=== PATIENT | female | born 2000 | race Caucasian/White ===

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

== ENCOUNTER 2024-01-26 07:03 | Inpatient (IN) ==
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
--- OUTSIDE RECORDS SUMMARY | 2024-01-26 07:17 | External Medical Summary ---
Author Name Unknown Address Unknown Organization [id number]:[facility] [place] [address] [facility] [place] [address] Laboratory Report Ordering Provider Test Date Status BRANDYN BRUCE 01/23/2024 11:00:00 Final Observation Date Value Abnormality Reference (Units ) Status BUN 01/23/2024 11:00:00 9 6-20 (mg/dL) Final Creatinine 01/23/2024 11:00:00 0.7 0.5-1.0 (mg/dL) Final Glomerular filtration rate/1.73 sq M.predicted [Volume Rate/Area] in Serum, Plasma or Blood by Creatinine-based formula (CKD-EPI) 01/23/2024 11:00:00 >90 >=60 (mL/min) Final eGFR is calculated based on the CKD-EPI 2020 equation Sodium 01/23/2024 11:00:00 136 135-146 (m mol/L) Final Potassium 01/23/2024 11:00:00 4.3 3.5-5.1 (m mol/L) Final Cl 01/23/2024 11:00:00 105 98-107 (mm ol/L) Final CO2 01/23/2024 11:00:00 21 Below low normal 22- 32 (mmol/L) Final Anion gap 01/23/2024 11:00:00 10 7-15 (mmol /L) Final Glucose 01/23/2024 11:00:00 92 70-120 (mg /dL) Final Albumin 01/23/2024 11:00:00 3.7 Below low normal 3.8 -5.0 (g/dL) Final AST (Aspartate aminotransferase) 01/23/2024 11:00:00 38 Above high normal 10-35 (U/L) Final Alk Phos 01/23/2024 11:00:00 224 Above high normal 35 -130 (U/L) Final Bilirubin, Total 01/23/2024 11:00:00 0.2 <=1 .2 (mg/dL) Final Calcium 01/23/2024 11:00:00 9.2 8.4-10.2 ( mg/dL) Final Protein 01/23/2024 11:00:00 6.1 6.0-8.3 (g /dL) Final ALT (Alanine aminotransferase) 01/23/2024 11:00:00 7 Below low normal 10-35 (U/L) Final Performing Location [facility] [place] [facility] [address] [facility] [id number]
--- OUTSIDE RECORDS SUMMARY | 2024-01-26 07:17 | External Medical Summary | Summary of Care ---
Author Name Unknown Organization [facility] Address [address] [place] [address] Phone [phone] Care Team Providers Care Civil Attorney Name Role Phone John Garsia MD Primary Care Provider [phone] Reason for Visit * Reason Comments Outpatient Testing Encounter Details Date Type Department Care Team ([facility] st Contact Info) Description 01/23/2024 11:20 AM EDT Laboratory Laboratory, [facility] [address] [place] [id number] [facility] [address] [place] [address] Arrived Allergies No known active allergiesdocumented as of [...] breast feeding 1 Each 0 10/20/2023 Active documented as of this encounter (statuses as of 01/23/2024) Active Problems Problem Noted Date Diagnosed Date Health counseling 06/30/2023 Overview: Problem Action Taken Date entered Entered by Date resolved Lack of family support Discussed resources 06/30/2023 Dinora Diego RN 06/30/2023 Problem Action Taken Date entered Entered by Date resolved Need for food assistance referred to [facility] and local food soriano 06/30/2023 Dinora Diego RN 06/30/2023 Problem Action [...] has number to call after hours. Provider eval 01/23/2024 Shannon Ivy RN 01/23/2024 Encounter for [...] Date Smoking Tobacco: Never Smokeless Tobacco: Never Comments:Parents smoke but n ot around this Alcohol Use Standard Drinks/Week Comments Not Currently [...] money to get more. Never true 08/24/2023 [place] Depression Scale Answer Date Recorded [place] Depression Scale Total 0 01/02/2024 The thought [...] on file documented as of this encounter Plan of Treatment Upcoming Encounters Date Type Department Care Team (Late st Contact Info) Description 01/23/2024 3:40 PM EDT Office Visit [facility] [address] [place] [facility] [place] [id number] Henry Cisneros MD [address] [place] [address] Health Maintenance Due Date Last Done Comments [...] Not on filedocumented as of this encounter Care Teams Civil Attorney Relationship Specialty Start Date End Date John Garsia MD [address] [place] [address] PCP - General Family Medicine 03/04/19 documented as of this encounter
--- OUTSIDE RECORDS SUMMARY | 2024-01-26 07:17 | External Medical Summary | Summary of Care ---
Author Name Unknown Organization [facility] Address [address] [place] [address] Phone [phone] Care Team Providers Care Corrugator Operator Helper Name Role Phone John Garsia MD Primary Care Provider [phone] Reason for Visit * Reason Onset Date Comments Test Results 01/23/2024 Unexpected or In determinate Result Encounter Details Date Type Department Care Team (Late st Contact Info) Description 01/23/[address] [facility] [address] [place] [address] Jyotsna Richter PA-C [address] [place] [address] Test Results (Unexpected or Indeterminate ... Allergies No known active allergiesdocumented as of [...] resolved Need for food assistance referred to [facility] and local food [employer] 06/30/2023 Dinora Diego, ERNESTINA 06/30/2023 Problem Action Taken Date entered Entered [...] 01/23/2024) Immunizations Name Administration Dates Next Due DTaP Dipth/Tet/Acell Pertussis (Infanrix), Peds 06/15/2004,10/09/2001,02/12/2000,11/07,1999 HIB Hep B - HIB Hepatitis B (Comvax) 11/29/2002, 02/12/2000 HIB PRP-T, 4 dose (ActHib) 1999,1999 HPV Vaccine, 4-Valent 07/26/2013,12/19/2011,01/201212/08/2011 Hep A - Hepatitis A (ped/ado le, 1-18 Yrs) 01/13/2017 Hepatitis B, 0-19 yrs 06/27/2000 IPV - Polio Virus Vaccine (Inact) 2003,10/09/2001,1999,09/06 MMR - Measles/Mumps/Rubella Vaccine 06/15/2004,0 10/09/2001 Meningococcal Conjugate Vacc ine (Menactra/Menveo) 01/11/2016,10/09/2011 Seasonal Influenza, PF, 6 M & above, IM , (FluLaval or Fluzone) 07/01/2023,07/20/2019,07/13/2018 Seasonal Influenza, Quadriva lent, No Preserve, IM 07/14/2020 Seasonal Influenza, Split, I IV3, With Preserve, Inj 07/12/2013,06/26/2009(Deferred: Patient Refused) TDAP (age 10 and older)(Boostrix) 11/03/2023 TDAP (age 11 and older)(Adacel) 01/13/2017,10/0910/09/2021 Varicella Vaccine (Chicken Pox) 06/15/2004,10/09 documented as of this encounter Social History Tobacco Use Types Packs/Day Years Used Date Smoking Tobacco: Never Smokeless Tobacco: Never Comments:Parents smoke but n ot around this infant Alcohol Use Standard Drinks/Week [...] money to get more. Never true 08/24/2023 [place] Depression Scale Answer Date Recorded [place] Depression Scale Total 0 01/02/2024 The thought [...] on file documented as of this encounter Miscellaneous Notes * Telephone Encounter - Jyotsna Richter PA-C - 01/23/2024 11:22 AM EDT Delayed documentation d/t patient care. Review case and management of this patient with business unit controller provider - Dr. Evans. Discussed visit today. C/o contractions. Non-reactive NST. BPP completed 05/13. Final report not back at time of call with Dr. Evans. Preliminary findings concerning for TRENT 5.0. Reviewed other findings of elevated BP without diagnosis of GHTN. Negative proteins by site dip. Asymptotic. PEC labs drawn. Dr. Evans advised no beds available for delivery today. Recommend she be set up with IOL on Friday.Patient was scheduled for IOL on 01/26/2024 at [facility]. Patient was called and given instructions for induction. Final report back received back after this plan of care establish. TRENT 7.6 on final report not 5.0.Given non-reactive NST today, borderline low TRENT, elevated BP and due date tomorrow will proceed with postdate IOL as scheduled on 01/25. * Telephone Encounter - Jyotsna Richter PA-C - 01/23/2024 11:21 AM EDT Aware. * Telephone Encounter - Theresa Donahue TECH - 01/23/2024 10:10 AM EDT Hello- The radiologist discovered an unexpected or indeterminate finding on Natacha Payton ([id number]) and asks that you review the following report. Study Type: US BPP W/O NON-STRESS TEST Date of Study: 01/23/2024 IMPRESSION: 1. BPP score: 8 of 8. 2. Lower limits of normal TRENT. 3. Vertex presentation. Please respond to this encounter to acknowledge receipt of this message and take responsibility to ensure this report is reviewed. Thank you, PONCHO Cotton Client Service Rep [facility] [place] documented in this encounter Plan of Treatment Upcoming Encounters Date Type Department Care Team (Late st Contact Info) Description 01/23/2024 3:40 PM EDT Office Visit [facility] [address] [facility] [place] [phone] Henry Cisneros MD [address] [facility] [place] [phone] Health Maintenance Due Date Last Done Comments [...] filedocumented as of this encounter Care Teams Corrugator Operator Helper Relationship Specialty Start Date End Date John Garsia MD [address] [place] [address] PCP - General Family Medicine 03/04/19 documented as of this encounter
--- OUTSIDE RECORDS SUMMARY | 2024-01-26 07:17 | External Medical Summary | Summary of Care ---
Author Name Unknown Organization [facility] Address [address] [facility] [place] [address] Phone [phone] Care Team Providers Care Surgeon Chief Name Role Phone John Garsia MD Primary Care Provider [phone] Encounter Details Date Type Department Care Team ([facility] st Contact Info) Description 01/20/2024 Telephone Gynecology/Obstetrics, [address] [place] [address] Jyotsna Richter PA-C [address] [place] [address] Allergies No known active allergiesdocumented as of this encounter (statuses as of 01/20/2024) Medications Medication Sig Dispensed Refills Start Date [...] as of this encounter (statuses as of 01/20/2024) Active Problems Problem Noted Date Diagnosed Date Health counseling 06/30/2023 Overview: Problem Action Taken Date entered Entered by Date resolved Lack of family support Discussed resources 06/30/2023 Dinora Diego RN 06/30/2023 Problem Action Taken Date entered Entered by Date resolved Need for food assistance referred to [facility] and local food [employer] 06/30/2023 Dinora Diego [...] or questions 01/16/2024 Shannon Ivy RN 01/16/2024 Encounter for supervision of normal first in first trimester 06/30/2023 Migraine without aura and wi thout status migrainosus, not intractable 11/12/2021 Headache, unspecified headache type 09/04/2018 Dermatitis 06/25/2017 Estimated Date of Delivery Comme nts Yes 01/24/2024 Based on Ultraso und documented as of this encounter (statuses as of 01/20/2024) Resolved Problems Problem Noted Date Diagnosed Date [...] as of this encounter (statuses as of 01/20/2024) Immunizations Name Administration Dates Next Due HPV [...] money to get more. Never true 08/24/2023 [place] Depression Scale Answer Date Recorded [place] Depression Scale Total 0 01/02/2024 The thought [...] encounter Miscellaneous Notes * Telephone Encounter - Xochitl Valadez LPN - 01/20/2024 1:15 PM EDT Addressed through myg * Telephone Encounter - Stephie Hart RN - 01/20/2024 11:34 AM EDT T/C from pt stating that she lost her mucus plug just now. Denies UCs or cramping. Admits to +FM. Denies vaginal bleeding or LOF. Reassurance given. Advised pt to cont to monitor. To call office with any decreased FM, vaginal bleeding, LOF or UCs. Please review with aoc operations intelligence chief provider and notify pt. Maria C pt. documented in this encounter Plan of Treatment Upcoming Encounters Date Type Department Care Team (Late st Contact Info) Description 01/23/2024 7:30 AM EDT Office Visit Gynecology/Obstetrics [facility] [address] [place] [address] Jyotsna Richter PA-C [address] [place] [address] Nurse [facility] Return [facility] [address] [place] [address] Health Maintenance Due Date Last Done Comments [...] filedocumented as of this encounter Care Teams Surgeon Chief Relationship Specialty Start Date End Date John Garsia MD [address] [place] [address] PCP - General Family Medicine 03/04/19 documented as of this encounter
--- OUTSIDE RECORDS SUMMARY | 2024-01-26 07:17 | External Medical Summary | Summary of Care ---
Author Name Unknown Organization [facility] Address [address] [place] [address] Phone [phone] Care Team Providers Care Supervisor Wood Crew Name Role Phone John Garsia MD Primary Care Provider [phone] Reason for Visit * Reason Comments Return Visit Encounter Details Date Type Department Care Team (Late st Contact Info) Description 01/23/2024 7:30 AM EDT Office Visit Gynecology/Obstetri cs [facility] [address] [facility] [place] [address] Jyotsna Richter PA-C [address] [place] [address] Nurse [facility] Return Sascha [address] [place] [address] 39 weeks gestation of * Allergies No known active allergiesdocumented as of this encounter (statuses as of 01/23/2024) Medications Medication Sig Dispensed Refills Start Date End Date Status Ondansetron 8 MG Oral Tablet Disintegrating (Zofran)Indications:N ausea Place on tongue 1 Tablet every 8 hours as needed for Nausea. dissolve on tongue. 12 Tablet 1 01/10/2022 Active Additional Information Patient not taking.Reported on 07/31/2023 Flintsbarbara w/Iron 18 MG Oral Tablet Chewable Take [...] resolved Need for food assistance referred to [facility] and local food soriano 06/30/2023 Dinora Diego [...] money to get more. Never true 08/24/2023 [place] Depression Scale Answer Date Recorded [place] Depression Scale Total 0 01/02/2024 The thought [...] Sign Reading Time Taken Comments Blood Pressure 142/84 01/23/2024 7:33 AM EDT Pulse - - Temperature - - Respiratory Rate - - Oxygen Saturation - - Inhaled Oxygen Concentration - - Weight 73 kg (161 lb) 01/23/2024 7:33 AM EDT Height 152.4 cm (5') 01/23/2024 7:33 AM EDT Body Mass Index 31.44 01/23/2024 7:33 AM EDT documented in this encounter Progress Notes * Jyotsna Richter PA-C - 01/23/2024 7:48 AM EDT 39w6d C/o severe menstrual cramping. Every 3 minutes apart. Started yesterday. Feels it this morning. Pt states at worse 10/10 pain. Desires cervical check. Cervix high/firm/posterior/fingertip. SSE: cervix visually closed BP also elevated at 142/84. Recheck 128/90. Denies h/a, RUQ pain, cp, SOB, or vision changes. Pt reports swollen left eye-lid. Unsure reason. Denies VB, LOF. Baby is active. UA negative. ASSESSMENT assessment with Non-stress Test completed on 01/23/2024 at 39.6 weeks gestation for indicationof contractions heart baseline: 125 bpm, strip jammed between 036-035 pap discarded Variability: Moderate Decelerations: absent Accelerations: absent Contractions: Present irregular q10-15 minutes NST start time: 07:48 AM NST stop time: 8:30 AM NST strip reviewed, interpreted, and approved by OB provider, Jyotsna Richter PA-C. NST strip stored in clinic storage file A/P: BPP to be completed d/t non-reactive NST -- BPP 05/13, low TRENT. See additional encounters for IOL. BP elevated, no proteins by site dip, asymptomatic. PEC labs ordered. Labor and pre-eclampsia precautions reviewed in detail with patient Pt to be induced Friday01/26/2024. documented in this encounter Nursing Notes * Shannon Ivy RN - 01/23/2024 8:06 AM EDT Patient seen by [facility] Safety Scientist. * Gloria Patino LPN - 01/23/2024 7:33 AM EDT 39w6d documented in this encounter Plan of Treatment Upcoming Encounters Date Type Department Care Team (Late st Contact Info) Description 01/23/2024 3:40 PM EDT Office Visit [facility] [address] [place] [facility] [place] [address] Henry Cisneros MD [address] [place] [address] Pending Results Name Type Priority Associated Diagnoses Date /Time PROTEIN/ CREATININE RATIO, URINE Lab Routine 39 weeks gestation of 01/23/2024 9:33 AM EDT COMPREHENSIVE METABOLIC PANEL Lab Routine 39 weeks gestation of 01/23/2024 11:00 AM EDT Health Maintenance Due Date Last Done Comments [...] Not on filedocumented as of this encounter Procedures Procedure Name Priority Date/Time Associated Diagnosis Comments CBC Routine 01/23/2024 11:00 AM EDT 39 weeks gestation of URINALYSIS, POINT OF CARE (ENTER/EDIT) Routine 01/23/2024 39 weeks gestation of documented in this encounter Results * (ABNORMAL) CBC (01/23/2024 11:00 AM EDT) WBC 8.55 4.00 - 10.80 K/uL 01/23/2024 11:59 AM EDT [facility] [place] [facility]10 RBC 4.06 3.85 - 5.15 M/uL 01/23/2024 11:59 AM EDT [facility] [place] 57-10 HGB 11.5(L) 12.0 - 15.3 g/dL 01/23/2024 11:59 AM EDT [facility] [place] 57-10 HCT 35.5(L) 36.0 - 45.2 % 01/23/2024 11:59 AM EDT [facility] [place] [facility]10 MCV 87.4 81.5 - 97.5 fL 01/23/2024 11:59 AM EDT [facility] [place] [facility]10 MCH 28.3 27.0 - 34.0 pg 01/23/2024 11:59 AM EDT [facility] [place] [facility]10 MCHC 32.4 32.0 - 36.0 g/dL 01/23/2024 11:59 AM EDT [facility] [place] [facility]10 RDW 14.8 11.5 - 15.5 % 01/23/2024 11:59 AM EDT [facility] [place] [facility]10 PLT 263 140 - 400 K/uL 01/23/2024 11:59 AM EDT [facility] [place] [facility]10 MPV 11.3 6.6 - 11.1 fL 01/23/2024 11:59 AM EDT [facility] [place] [facility]10 Blood Venous blood specimen / Unknown Venipuncture / Unknown 01/23/2024 11:00 AM EDT 01/23/2024 11:00 AM EDT Jyotsna Richter PA-C LAB BLOOD ORDERABLES [facility] [address] [facility] [place] [address] * US BPP W/O NON-STRESS TEST (01/23/2024 9:41 AM EDT) Anatomical Region Laterality Modality Abdomen, Body Ultrasound 01/23/2024 9:53 AM EDT Impressions 01/23/2024 9:51 AM EDT IMPRESSION: 1. BPP score: 8 of 8. 2. Lower limits of normal TRENT. 3. Vertex presentation. Narrative 01/23/2024 9:51 AM EDT EXAM: US BPP W/O NON-STRESS TEST - 01/23/2024 9:41 am HISTORY: non-reactive nst TECHNIQUE: Sonographic examination performed. COMPARISON: First ultrasound 06/30/2023 FINDINGS: GENERAL On 1st ultrasound 06/30/2023 the due date 01/24/2024 so current gestational age 39 weeks 6 days. : [place] Presentation: Vertex heart rate: 151 bpm Amniotic Fluid: Lower limits of normal TRENT: 7.6 cm which is slightly above the 5th percentile for this stage of . BIOPHYSICAL PROFILE breathing movement: 2 Gross body movement: 2 tone: 2 Qualitative AFV: 2 Total BPP score: 8 of 8. Procedure Note Curtis Matias MD - 01/23/2024 EXAM: US BPP W/O NON-STRESS TEST - 01/23/2024 9:41 am HISTORY: non-reactive nst TECHNIQUE: Sonographic examination performed. COMPARISON: First ultrasound 06/30/2023 FINDINGS: GENERAL On 1st ultrasound 06/30/2023 the due date 01/24/2024 so currentgestational age 39 weeks 6 days. : [place] Presentation: Vertex heart rate: 151 bpm Amniotic Fluid: Lower limits of normal TRENT: 7.6 cm which is slightly above the 5th percentile for this stage ofpregnancy. BIOPHYSICAL PROFILE breathing movement: 2 Gross body movement: 2 tone: 2 Qualitative AFV: 2 Total BPP score: 8 of 8. IMPRESSION IMPRESSION: 1. BPP score: 8 of 8. 2. Lower limits of normal TRENT. 3. Vertex presentation. Jyotsna Richter PA-C RAD ULTRASOUND * URINALYSIS, POINT OF CARE (ENTER/EDIT) (01/23/2024) Color, Urine Yellow Yellow or Light Yellow Clarity, Urine Clear Clear Glucose, Urine Negative Negative mg/dL Bilirubin, Urine Negative Negative Ketone, Urine Negative Negative mg/dL Specific [place], Urine 1.015 1.003 - 1.030 Blood, Urine Negative Negative pH, Urine 7.0 5.0 - 7.5 units Protein, Urine Negative Negative mg/dL Urobilinogen, Urine 0.2 0.2 - 1.0 mg/dL Nitrite, Urine Negative Negative Esterase, Urine Negative Negative Urine 01/23/2024 Jyotsna Richter PA-C LAB POINT OF CARE TE ST ENTER/EDIT ORDERABLES documented in this encounter Visit Diagnoses Diagnosis 39 weeks gestation of - Primary state, incidental 39 weeks gestation of state, incidental documented in this encounter Care Teams Supervisor Wood Crew Relationship Specialty Start Date End Date John Garsia MD [address] [facility] [place] [address] PCP - General Family Medicine 03/04/19 documented as of this encounter
--- OUTSIDE RECORDS SUMMARY | 2024-01-26 07:17 | External Medical Summary ---
Author Name Unknown Address Unknown Organization [id number]:[facility] [place] - [address] [place] [address] Laboratory Report Ordering Provider Test Date Status BRANDYN BRUCE 01/23/2024 09:33:19 Final Normal: <150 mg/ g creatinine
High: 150-500 mg/g creatinine
Very High: >500 mg/g creatinine
Nephrotic: >3000 mg/g creatinine Observation Date Value Abnormality Reference (Units ) Status Protein/Creatinine [Ratio] in Urine 01/23/2024 09:33:19 192 Above high normal <150 (mg/g ) Final Protein, Urine 01/23/2024 09:33:19 10 (mg/dL) Final Creatinine, Urine 01/23/2024 09:33:19 52 (mg/dL) Final Performing Location [facility]ORY [facility] [place] - [address] [place] [address]
--- OUTSIDE RECORDS SUMMARY | 2024-01-26 07:17 | External Medical Summary ---
Author Name Unknown Address Unknown Organization [id number]:[facility] - [address] [place] [address] Laboratory Report Ordering Provider Test Date Status BRANDYN BRUCE 01/23/2024 11:00:00 Final Observation Date Value Abnormality Reference (Units ) Status WBC, Total 01/23/2024 11:00:00 8.55 4.00-10.8 0 (K/uL) Final RBC 01/23/2024 11:00:00 4.06 3.85-5.15 (M/uL) Final Hemoglobin 01/23/2024 11:00:00 11.5 Below low normal 12 .0-15.3 (g/dL) Final HCT 01/23/2024 11:00:00 35.5 Below low normal 36. 0-45.2 (%) Final MCV 01/23/2024 11:00:00 87.4 81.5-97.5 (fL) Final MCH 01/23/2024 11:00:00 28.3 27.0-34.0 (pg) Final MCHC 01/23/2024 11:00:00 32.4 32.0-36.0 (g/dL) Final RDW 01/23/2024 11:00:00 14.8 11.5-15.5 (%) Final Platelets 01/23/2024 11:00:00 263 140-400 (K /uL) Final MPV 01/23/2024 11:00:00 11.3 6.6-11.1 ( fL) Final Performing Location [facility]ORY [facility] 57-1 0 - [address] [place] [address]
--- OUTSIDE RECORDS SUMMARY | 2024-01-26 07:17 | External Medical Summary | Summary of Care ---
Author Name Unknown Organization [facility] Address [address] [place] [address] Phone [phone] Care Team Providers Care Cake Inspector Name Role Phone John Garsia MD Primary Care Provider [phone] Reason for Visit * Reason Comments Return Visit Encounter Details Date Type Department Care Team (Late st Contact Info) Description 01/16/2024 7:30 AM EDT Office Visit Gynecology/Obstetri cs [place] [address] [facility] [place] [address] Jyotsna Richter PA-C [address] [facility] [place] [address] Nurse [facility] Return Sascha [address] [place] [address] 38 weeks gestation of * Allergies No known active allergiesdocumented as of this encounter (statuses as of 01/16/2024) Medications Medication Sig Dispensed Refills Start Date [...] as of this encounter (statuses as of 01/16/2024) Active Problems Problem Noted Date Diagnosed Date Health counseling 06/30/2023 Overview: Problem Action Taken Date entered Entered by Date resolved Lack of family support Discussed resources 06/30/2023 Dinora Diego RN 06/30/2023 Problem Action Taken Date entered Entered by Date resolved Need for food assistance referred to [facility] and local food soriano 06/30/2023 Dinora Diego [...] as of this encounter (statuses as of 01/16/2024) Resolved Problems Problem Noted Date Diagnosed Date [...] as of this encounter (statuses as of 01/16/2024) Immunizations Name Administration Dates Next Due HPV [...] money to get more. Never true 08/24/2023 [place] Depression Scale Answer Date Recorded [place] Depression Scale Total 0 01/02/2024 The thought [...] Sign Reading Time Taken Comments Blood Pressure 124/76 01/16/2024 7:19 AM EDT Pulse - - Temperature - - Respiratory Rate - - Oxygen Saturation - - Inhaled Oxygen Concentration - - Weight 72.6 kg (160 lb) 01/16/2024 7:19 AM EDT Height 152.4 cm (5') 01/16/2024 7:19 AM EDT Body Mass Index 31.25 01/16/2024 7:19 AM EDT documented in this encounter Progress Notes * Jyotsna Richter PA-C - 01/16/2024 7:29 AM EDT 38w6d Increased cramping, had one yesterday that she states made her cry. Also had another in the waitingroom today. No consistent intervals. Denies VB, LOF. Pos fm. Request cervical check. Director Of Premium Seat Sales Documentation Provider requested leg man. Name of leg man: NATHAN Leung Uncertain position -- u/s ordered in follow up -- confirmed vertex RTC in 1 week Jyotsna Richter PA-C * Xochitl Valadez LPN - 01/16/2024 7:19 AM EDT 38w6d Having a lot of lower pelvic pressure Would like cervix checked documented in this encounter Nursing Notes * Shannon Ivy, RN - 01/16/2024 7:36 AM EDT Pt living with a friend has been. Feels her living situation is stable. Has a bassinet. Has a car seat. Plans to nurse baby. She notes her sister to be supportive. Pt denies any concerns. Number for nurse family partnership nurse given. Pt aware of their services and will think about reaching out to them. documented in this encounter Plan of Treatment Upcoming Encounters Date Type Department Care Team (Late st Contact Info) Description 01/23/2024 7:30 AM EDT Office Visit Gynecology/Obstetrics Maria C Morse [address] [place] [address] Jyotsna Richter PA-C [address] [place] [address] Nurse [facility] Return Sascha [address] [place] [address] Pending Results Name Type Priority Associated Diagnoses Date /Time US PREG LIMITED 1 OR MORE FETUSES Medical Imaging Routine 38 weeks gestation of 01/16/2024 7:50 AM EDT Scheduled Orders Name Type Priority Associated Diagnoses Orde r Schedule US PREG LIMITED 1 OR MORE FETUSES Medical Imaging Routine 38 weeks gestation of Expected: 01/16/2024, Expires: 02/14/2025 Health Maintenance Due Date Last Done Comments [...] as of this encounter Visit Diagnoses Diagnosis 38 weeks gestation of - Primary state, incidental documented in this encounter Care Teams Cake Inspector Relationship Specialty Start Date End Date John Garsia MD [address] [place] [address] PCP - General Family Medicine 03/04/19 documented as of this encounter
--- OUTSIDE RECORDS SUMMARY | 2024-01-26 07:17 | External Medical Summary | Summary of Care ---
Author Name Unknown Organization [facility] Address [address] [place] [address] Phone [phone] Care Team Providers Care Cereal Supervisor Name Role Phone John Garsia MD Primary Care Provider [phone] Reason for Visit * Reason Onset Date Comments Test Results 01/23/2024 Unexpected or In determinate Result Encounter Details Date Type Department Care Team (Late st Contact Info) Description 01/23/2024 Telephone Radiology [facility] [address] [place] [address] Jyotsna Richter PA-C [address] [facility] [place] [address] Test Results (Unexpected or Indeterminate ... Allergies [...] Need for food assistance referred to [facility] and local food [place] 06/30/2023 Dinora Diego, ERNESTINA 06/30/2023 Problem Action [...] money to get more. Never true 08/24/2023 [place] Depression Scale Answer Date Recorded [place] Depression Scale Total 0 01/02/2024 The thought [...] unexpected or indeterminate finding on Natacha Payton ([id number]) and asks that you review the following report. Study Type: US BPP W/O NON-STRESS TEST Date of Study: 01/23/2024 IMPRESSION: 1. BPP score: 8 of 8. 2. Lower limits of normal TRENT. 3. Vertex presentation. Please respond to this encounter to acknowledge receipt of this message and take responsibility to ensure this report is reviewed. Thank you, PONCHO Cotton Client Service Rep [facility] Medicine [place] documented in this encounter Plan of Treatment Upcoming Encounters Date Type Department Care Team (Late st Contact Info) Description 01/23/2024 3:40 PM EDT Office Visit [facility] [address] [place] [address] Henry Cisneros MD [address] [place] [address] Health Maintenance Due Date Last Done Comments [...] filedocumented as of this encounter Care Teams Cereal Supervisor Relationship Specialty Start Date End Date John Garsia MD [address] [place] [address] PCP - General Family Medicine 03/04/19 documented as of this encounter
--- OUTSIDE RECORDS SUMMARY | 2024-01-26 07:17 | External Medical Summary | Summary of Care ---
Author Name Unknown Organization [facility] Address [address] [place] [address] Phone [phone] Care Team Providers Care General Lot Attendant Name Role Phone John Garsia MD Primary Care Provider [phone] Reason for Visit * Reason Onset Date Comments Test Results 01/23/2024 Unexpected or In determinate Result Encounter Details Date Type Department Care Team (Late st Contact Info) Description 01/23/2024 Telephone Radiology [facility] [address] [place] [address] Jyotsna Richter PA-C [address] [place] [address] Test Results (Unexpected or Indeterminate ... Allergies [...] resolved Need for food assistance referred to [facility] and local food [employer] 06/30/2023 Dinora Diego, ERNESTINA 06/30/2023 Problem Action [...] money to get more. Never true 08/24/2023 [place] Depression Scale Answer Date Recorded [place] Depression Scale Total 0 01/02/2024 The thought [...] encounter Miscellaneous Notes * Telephone Encounter - Theresa Donahue TECH - 01/23/2024 10:10 AM EDT Hello- The radiologist discovered an unexpected or indeterminate finding on Natacha Payton ([id number]) and asks that you review the following [...] PONCHO Cotton Client Service Rep Diagnostic Medicine [place] documented in this encounter Plan of Treatment Upcoming Encounters Date Type Department Care Team (Late st Contact Info) Description 01/23/2024 3:40 PM EDT Office Visit [facility] [address] [place] [id number] Henry Cisneros MD [address] [place] [id number] Health Maintenance Due Date Last Done Comments [...] filedocumented as of this encounter Care Teams General Lot Attendant Relationship Specialty Start Date End Date John Garsia MD [address] [place] [address] PCP - General Family Medicine 03/04/19 documented as of this encounter
--- OUTSIDE RECORDS SUMMARY | 2024-01-26 07:17 | External Medical Summary | Summary of Care ---
Author Name Unknown Organization [facility] Address [address] [place] [address] Phone [phone] Care Team Providers Care Diesel Engine Engineer Name Role Phone John Garsia MD Primary Care Provider [phone] Reason for Visit * Reason Onset Date Comments Test Results 01/23/2024 Unexpected or In determinate Result Encounter Details Date Type Department Care Team (Late st Contact Info) Description 01/23/2024 Telephone Radiology [facility] [address] [place] [address] Jyotsna Richter PA-C [address] [facility] [place] [address] Test Results (Unexpected or Indeterminate ... Allergies [...] resolved Need for food assistance referred to [facility] and local food [address] 06/30/2023 Dinora Diego, ERNESTINA 06/30/2023 Problem Action [...] money to get more. Never true 08/24/2023 [place] Depression Scale Answer Date Recorded [place] Depression Scale Total 0 01/02/2024 The thought [...] case and management of this patient with automation controls engineer provider - Dr. Evans. Discussed visit today. C/o contractions. Non-reactive NST. BPP completed 05/13. TRENT 7.6, 5%. New findings now of oligohydramnios. Patient was not concerned with LOF or ROM at today's visit. Elevated BP without diagnosis of GHTN. Negative proteins by site dip. Asymptotic. PEC labs drawn. Dr. Evans advised no beds available for delivery today. Recommend she be set up with IOL on Friday.Patient was scheduled for IOL on 01/26/2024 at [facility]. Patient was called and given instructions for induction. * Telephone Encounter - Jyotsna Richter PA-C - 01/23/2024 11:21 AM EDT Aware. * Telephone Encounter - Theresa Donahue TECH - 01/23/2024 10:10 AM EDT Hello- The radiologist discovered an unexpected or indeterminate finding on Natacha Payton ([id number]) and asks that you review the following [...] PONCHO Cotton Client Service Rep Diagnostic Medicine [facility] documented in this encounter Plan of Treatment Upcoming Encounters Date Type Department Care Team (Late st Contact Info) Description 01/23/2024 3:40 PM EDT Office Visit [facility] [address] [place] [facility] [place] [address] Henry Cisneros MD [address] [place] [facility] [place] [address] Health Maintenance Due Date Last Done Comments Depression Screening 07/20/2020 07/20/2019 COVID-19 Vaccine (2022-24 season) 2023 Gonorrhea / Chlamydia Screen 06/30/2024, [...] filedocumented as of this encounter Care Teams Diesel Engine Engineer Relationship Specialty Start Date End Date John Garsia MD [address] [place] [address] PCP - General Family Medicine 03/04/19 documented as of this encounter
--- OUTSIDE RECORDS SUMMARY | 2024-01-26 07:18 | External Medical Summary | Summary of Care ---
Author Name Unknown Organization [facility] Address [address] [facility] [address] Phone [phone] Care Team Providers Care Waist Fitter Name Role Phone John Garsia MD Primary Care Provider [phone] Encounter Details Date Type Department Care Team ([facility] st Contact Info) Description 01/02/2024 Telephone [facility] [address] [place] [address] Jyotsna Richter PA-C [address] [place] [address] Allergies No known active allergiesdocumented as of this encounter (statuses as of 01/09/2024) Medications Medication Sig Dispensed Refills Start Date [...] as of this encounter (statuses as of 01/09/2024) Active Problems Problem Noted Date Diagnosed Date Health counseling 06/30/2023 Overview: Problem Action Taken Date entered Entered by Date resolved Lack of family support Discussed resources 06/30/2023 Dinora Diego RN 06/30/2023 Problem Action Taken Date entered Entered by Date resolved Need for food assistance referred to [facility] and local food soriano 06/30/2023 Dinora [...] or questions 01/02/2024 Dinora Diego RN 01/02/2024 Encounter for supervision of normal first in first trimester 06/30/2023 Migraine without aura and wi thout status migrainosus, not intractable 11/12/2021 Headache, unspecified headache type 09/04/2018 Dermatitis 06/25/2017 Estimated Date of Delivery Comme nts Yes 01/24/2024 Based on Ultraso und documented as of this encounter (statuses as of 01/09/2024) Resolved Problems Problem Noted Date Diagnosed Date [...] as of this encounter (statuses as of 01/09/2024) Immunizations Name Administration Dates Next Due HPV [...] money to get more. Never true 08/24/2023 [place] Depression Scale Answer Date Recorded [place] Depression Scale Total 0 01/02/2024 The thought [...] encounter Miscellaneous Notes * Telephone Encounter - Alina Choi LPN - 01/02/2024 4:32 PM EDT Pt is currently 36w6d with an Estimated Date of Delivery: 01/24/24 - Patient called in a panic due to severe pain in her vagina and along her back. Has been constant for the last hour. Stops her in her tracks and brings tears to her eyes. Denies LOF or bleeding. Was in for an appointment today and had GBS done. Patient took 500mgs of Tylenol 45 minutes ago with no relief. Advised patient to push fluids, have a warm shower, lay down for a bit to see if pain improves. Advised to call back if pain persists or gets worse, she has bleeding, signs of her water breaking or if baby is not moving. Patient agreeable. Will send to Dr. Chakraborty for review documented in this encounter Plan of Treatment Upcoming Encounters Date Type Department Care Team (Late st Contact Info) Description 01/16/2024 7:30 AM EDT Office Visit [facility] [address] [place] [address] Jyotsna Richter PA-C [address] [place] [address] Nurse [facility] [address] [place] [address] 01/23/2024 7:30 AM EDT Office Visit Gynecology/Obstetrics [facility] [address] [place] [address] Jyotsna Richter PA-C [address] [place] [address] Nurse [facility] [address] [place] [address] Health Maintenance Due Date Last Done Comments Depression Screening 07/20/2020 07/20/2019 COVID-19 Vaccine (2022- season) 2023 Gonorrhea / Chlamydia Screen 06/30/2024, [...] filedocumented as of this encounter Care Teams Waist Fitter Relationship Specialty Start Date End Date John Garsia MD [address] [facility] [address] PCP - General Family Medicine 03/04/19 documented as of this encounter
--- OUTSIDE RECORDS SUMMARY | 2024-01-26 07:18 | External Medical Summary | Summary of Care ---
Author Name Unknown Organization [facility] Address [address] [place] [address] Phone [phone] Care Team Providers Care Computer Systems Design Analyst Name Role Phone John Garsia MD Primary Care Provider [phone] Reason for Visit * Reason Comments Return Visit Encounter Details Date Type Department Care Team ([facility] st Contact Info) Description 12/19/2023 7:30 AM EDT Office Visit Gynecology/Obstetri [facility] [address] [facility] [place] [address] Jyotsna Richter PA-C [address] [facility] [place] [address] Nurse [facility] Return [facility] [address] [place] [address] 34 weeks gestation of * Allergies No known active allergiesdocumented as of this encounter (statuses as of 12/19/2023) Medications Medication Sig Dispensed Refills Start Date End Date Status Ondansetron 8 MG Oral Tablet Disintegrating (Zofran)Indications:N ausea Place on tongue 1 Tablet every 8 hours as needed for Nausea. dissolve on tongue. 12 Tablet 1 01/10/2022 Active Additional Information Patient not taking.Reported on 07/31/2023 Flintsmazines w/Iron 18 MG Oral Tablet Chewable Take 2 Tablets by mouth in the morning. 60 Tablet 12 08/25/2023 Active Additional Information Patient not taking.Reported on 12/05/2023 Breast Pump Use daily while breast feeding 1 Each 0 10/20/2023 Active documented as of this encounter (statuses as of 12/19/2023) Active Problems Problem Noted Date Diagnosed Date Health counseling 06/30/2023 Overview: Problem Action Taken Date entered Entered by Date resolved Lack of family support Discussed resources 06/30/2023 Dinora Diego RN 06/30/2023 Problem Action Taken Date entered Entered by Date resolved Need for food assistance referred to [facility] and local food soriano 06/30/2023 Dinora [...] or questions 12/19/2023 Dinora Diego RN 12/19/2023 Encounter for supervision of normal first in first trimester 06/30/2023 Migraine without aura and wi thout status migrainosus, not intractable 11/12/2021 Headache, unspecified headache type 09/04/2018 Dermatitis 06/25/2017 Estimated Date of Delivery Comme nts Yes 01/24/2024 Based on Ultraso und documented as of this encounter (statuses as of 12/19/2023) Resolved Problems Problem Noted Date Diagnosed Date [...] as of this encounter (statuses as of 12/19/2023) Immunizations Name Administration Dates Next Due HPV [...] money to get more. Never true 08/24/2023 [place] Depression Scale Answer Date Recorded [place] Depression Scale Total 1 10/20/2023 The thought of harming myself has occurred to me . Never 10/20/2023 Estimated Date of Delivery Comme nts Yes [...] Sign Reading Time Taken Comments Blood Pressure 112/70 12/19/2023 7:17 AM EDT Pulse - - Temperature - - Respiratory Rate - - Oxygen Saturation - - Inhaled Oxygen Concentration - - Weight 70.3 kg (155 lb) 12/19/2023 7:17 AM EDT Height 152.4 cm (5') 12/19/2023 7:17 AM EDT Body Mass Index 30.27 12/19/2023 7:17 AM EDT documented in this encounter Progress Notes * Jyotsna Richter PA-C - 12/19/2023 7:21 AM EDT 34w6d Has numbness in tip of R 3rd digit. Denies injury. Radial pulses normal. Recommended PCP evaluation. Denies VB, LOF, contractions. Pos fm. Reviewed GBS at 36 weeks. Jyotsna Richter PA-C * Xochitl Valadez LPN - 12/19/2023 7:17 AM EDT 34w6d Middle finger on right hand is numb no other fingers documented in this encounter Nursing Notes * Dinora Diego RN - 12/19/2023 7:28 AM EDT Patient seen by [facility] Human Factors Ergonomist. Patient denies any questions or concerns. documented in this encounter Plan of Treatment Upcoming Encounters Date Type Department Care Team (Late st Contact Info) Description 01/02/2024 11:30 AM EDT Office Visit Gynecology/Obstetrics [facility] [address] [place], [place] [address] Jyotsna Richter PA-C [address] [place] [address] Nurse [facility] [address] [place], [place] [address] 01/08/2024 2:30 PM EDT Office Visit Gynecology/Obstetrics [facility] [address] [place], [place] [address] Marta Hollingsworth PA-C [address] [facility] [address] Nurse [facility] [address] [place] [address] 01/16/2024 7:30 AM EDT Office Visit Gynecology/Obstetrics [facility] [address] [place] [address] Jyotsna Richter PA-C [address] [place] [address] Nurse [facility] Return Sascha [address] [place], [place] [address] 01/23/2024 7:30 AM EDT Office Visit Gynecology/Obstetrics [facility] [address] [place] [address] Jyotsna Richter PA-C [address] [place] [address] Nurse [facility] Return Sascha [address] [place] [address] Health Maintenance Due Date Last Done Comments Depression Screening 07/20/2020 07/20/2019 COVID-19 Vaccine ( - 2022- season) 2023 Gonorrhea / Chlamydia Screen 06/30/2024, [...] as of this encounter Visit Diagnoses Diagnosis 34 weeks gestation of - Primary state, incidental documented in this encounter Care Teams Computer Systems Design Analyst Relationship Specialty Start Date End Date John Garsia MD [address] [place] [address] PCP - General Family Medicine 03/04/19 documented as of this encounter
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
--- OUTSIDE RECORDS SUMMARY | 2024-01-26 07:18 | External Medical Summary | Summary of Care ---
Author Name Unknown Organization [facility] Address [address] [place] [address] Phone [phone] Care Team Providers Care Dispatch Officer Name Role Phone John Garsia MD Primary Care Provider Reason for Visit * Reason Comments Healthy Beginnings Return Encounter Details Date Type Department Care Team ([facility] st Contact Info) Description 01/02/2024 11:30 AM EDT Office Visit Gynecology/Obstetri ezio Morse [address] [facility] [place] [address] Jyotsna Richter PA-C [address] [place] [address] Nurse Lito [facility] Return Sascha [address] [place] [address] 36 weeks gestation of * Allergies No known active allergiesdocumented as of this encounter (statuses as of 01/02/2024) Medications Medication Sig Dispensed Refills Start Date End Date Status Ondansetron 8 MG Oral Tablet Disintegrating (Zofran)Indications:N ausea Place on tongue 1 Tablet every 8 hours as needed for Nausea. dissolve on tongue. 12 Tablet 1 01/10/2022 Active Additional Information Patient not taking.Reported on 07/31/2023 Flalejandra w/Iron 18 MG Oral Tablet Chewable Take 2 Tablets by mouth in the morning. 60 Tablet 12 08/25/2023 Active Additional Information Patient not taking.Reported on 12/05/2023 Breast Pump Use daily while breast feeding 1 Each 0 10/20/2023 Active documented as of this encounter (statuses as of 01/02/2024) Active Problems Problem Noted Date Diagnosed Date Health counseling 06/30/2023 Overview: Problem Action Taken Date entered Entered by Date resolved Lack of family support Discussed resources 06/30/2023 Dinora Diego RN 06/30/2023 Problem Action Taken Date entered Entered by Date resolved Need for food assistance referred to [facility] and local food soriano 06/30/2023 Dinora Diego [...] as of this encounter (statuses as of 01/02/2024) Resolved Problems Problem Noted Date Diagnosed Date [...] as of this encounter (statuses as of 01/02/2024) Immunizations Name Administration Dates Next Due HPV [...] money to get more. Never true 08/24/2023 [place] Depression Scale Answer Date Recorded [place] Depression Scale Total 0 01/02/2024 The thought [...] Sign Reading Time Taken Comments Blood Pressure 110/82 01/02/2024 11:19 AM EDT Pulse - - Temperature - - Respiratory Rate - - Oxygen Saturation - - Inhaled Oxygen Concentration - - Weight 71.2 kg (157 lb) 01/02/2024 11:19 AM EDT Height 152.4 cm (5') 01/02/2024 11:19 AM EDT Body Mass Index 30.66 01/02/2024 11:19 AM EDT documented in this encounter Progress Notes * Jyotsna Richter PA-C - 01/02/2024 11:47 AM EDT 36w6d Without complaints. Due for GBS collected. Has some intermittent cramping, tightening. No timing. Denies VB, LOF Pos fm. Labor precautions reviewed. RTC in 1 week Jyotsna Richter PA-C documented in this encounter Nursing Notes * Dinora Diego RN - 01/02/2024 11:37 AM EDT Patient seen by [facility] Home Performance Laborer. Patient denies any questions or concerns. have you cut down with your smoking n/a have you quit n/a have you seen a program professional no have you seen a social work professor no are you receiving counseling no have you received dental care during your no are you enrolled in WIC yes do you receive food stamps or champagne assistance alonzo Diego RN * Gloria Patino LPN - 01/02/2024 11:24 AM EDT 36w6d Gbs today Denies concerns. documented in this encounter Plan of Treatment Upcoming Encounters Date Type Department Care Team (Late st Contact Info) Description 01/08/2024 2:30 PM EDT Office Visit Gynecology/Obstetrics Rolonrafael Morse [address] [place] [address] Marta Hollingsworth PA-C [address] [place] [address] Nurse Lito [facility] Return Sascha [address] [place] [address] 01/16/2024 7:30 AM EDT Office Visit Gynecology/Obstetrics Rolonrafael Morse [address] [place] [address] Jyotsna Richter PA-C [address] [place], [place] [address] Nurse Lito [facility] Return Sascha [address] [place] [address] 01/23/2024 7:30 AM EDT Office Visit Gynecology/Obstetrics Rolon's Morse [address] [place] [address] Jyotsna Richter PA-C [address] [place], [place] [address] Nurse Lito [facility]nings Return Sascha [address] [place] [address] Pending Results Name Type Priority Associated Diagnoses Date /Time GROUP B STREP CULTURE/PCR Lab Routine 36 weeks gestation of 01/02/2024 1:02 PM EDT Health Maintenance Due Date Last Done [...] as of this encounter Visit Diagnoses Diagnosis 36 weeks gestation of - Primary state, incidental documented in this encounter Care Teams Dispatch Officer Relationship Specialty Start Date End Date John Garsia MD [address] [place] [address] PCP - General Family Medicine 03/04/19 documented as of this encounter
--- OUTSIDE RECORDS SUMMARY | 2024-01-26 07:18 | External Medical Summary | Summary of Care ---
Author Name Unknown Organization [facility] Address [address] [place] [address] Phone [phone] Care Team Providers Care Farm Contractor Buyer Name Role Phone John Garsia MD Primary Care Provider [phone] Reason for Visit * Reason Onset Date Comments Advice 01/15/2024 Encounter Details Date Type Department Care Team ([facility] st Contact Info) Description 01/15/2024 Telephone Gynecology/Obstetrics [facility] [address] [place] [address] Felix Lerma MD [address] [place] [address] Advice Allergies No known active allergiesdocumented as of this encounter (statuses as of 01/15/2024) Medications Medication Sig Dispensed Refills Start Date [...] as of this encounter (statuses as of 01/15/2024) Active Problems Problem Noted Date Diagnosed Date Health counseling 06/30/2023 Overview: Problem Action Taken Date entered Entered by Date resolved Lack of family support Discussed resources 06/30/2023 Dinora Diego, ERNESTIAN 06/30/2023 Problem Action Taken Date entered Entered by Date resolved Need for food assistance referred to [facility] and local food soriano 06/30/2023 Dinora [...] as of this encounter (statuses as of 01/15/2024) Resolved Problems Problem Noted Date Diagnosed Date [...] as of this encounter (statuses as of 01/15/2024) Immunizations Name Administration Dates Next Due HPV [...] money to get more. Never true 08/24/2023 [place] Depression Scale Answer Date Recorded [place] Depression Scale Total 0 01/02/2024 The thought [...] encounter Miscellaneous Notes * Telephone Encounter - Shannon Ivy RN - 01/15/2024 12:26 PM EDT Ashley from [facility] called She is concerned for pt as she has not returned her calls and Ashley thinks she may be homeless, staying with friends. She states that the [employer] has been trying to reach her as well but has been unsuccessful. Pt has appt tomorrow. Ashley askedif we give Natacha her contact info and ask her to text or call her with a new phone number and address. Ashley's phone number is [phone]. Will notify pt tomorrow at her appt. documented in this encounter Plan of Treatment Upcoming Encounters Date Type Department Care Team (Late st Contact Info) Description 01/16/2024 7:30 AM EDT Office Visit Gynecology/Obstetrics Maria C Morse [address] [place] [address] Jyotsna Richter PA-C [address] [place] [address] Nurse Lito [facility] Beginnings Return Sascha [address] [place] [address] 01/23/2024 7:30 AM EDT Office Visit Gynecology/Obstetrics Maria C Morse [address] [place] [address] Jyotsna Richter PA-C [address] [place] [address] Nurse Lito Healthy [facility] Return Sascha [address] [place] [address] Health Maintenance Due Date Last Done Comments [...] filedocumented as of this encounter Care Teams Farm Contractor Buyer Relationship Specialty Start Date End Date John Garsia MD [address] [facility] [place] [address] PCP - General Family Medicine 03/04/19 documented as of this encounter
--- OUTSIDE RECORDS SUMMARY | 2024-01-26 07:18 | External Medical Summary | Summary of Care ---
Author Name Unknown Organization [facility] Address [address] [place] [address] Phone [phone] Care Team Providers Care Screen Door Maker Name Role Phone John Garsia MD Primary Care Provider [phone] Reason for Visit * Reason Comments Return Visit Encounter Details Date Type Department Care Team ([facility] st Contact Info) Description 01/08/2024 2:30 PM EDT Office Visit Gynecology/Obstetri ezio Rolonnigel Morse [address] [facility] [place] [address] Marta Hollingsworth PA-[place] [address] [facility] [place] [address] Nurse Lito Healthy Beginnings Return Sascha [address] [facility] [place] [address] Encounter for supervision of normal first in [...] resolved Need for food assistance referred to [facility] and local food soriano 06/30/2023 Dinora [...] 01/08/2024) Immunizations Name Administration Dates Next Due HPV [...] money to get more. Never true 08/24/2023 [place] Depression Scale Answer Date Recorded [place] Depression Scale Total 0 01/02/2024 The thought [...] help much, but they have been tolerable. No further concerns at this time. REVIEW OF SYSTEMS She affirms movement. Denies vaginal bleeding, LOF, contractions, N/V, vision changes, chest pain, deep [...] new vision changes. Encouraged adequate hydration. - labor precautions and kick counts reviewed RTO in 1 week Marta Hollingsworth PA-C 01/08/2024 * Xochitl Valadez LPN - 01/08/2024 2:10 PM EDT 37w5d Having GREENE's taking tylenol with little relief documented in this encounter Plan of Treatment Upcoming Encounters Date Type Department Care Team (Late st Contact Info) Description 01/16/2024 7:30 AM EDT Office Visit Gynecology/Obstetrics Gonzalesrafael Lito [address] [place] [address] Jyotsna Richter PA-C [address] [place] [address] Nurse Lito [facility] Return Sascha [address] [place] [address] 01/23/2024 7:30 AM EDT Office Visit Gynecology/Obstetrics Gonzalesrafael Lito [address] [place] [address] Jyotsna Richter PA-C [address] [place] [address] Nurse Lito [facility] Return Sascha [address] [place] [address] Health Maintenance Due Date Last Done Comments [...] first documented in this encounter Care Teams Screen Door Maker Relationship Specialty Start Date End Date John Grasia MD [address] [place] [address] PCP - General Family Medicine 03/04/19 documented as of this encounter
--- OUTSIDE RECORDS SUMMARY | 2024-01-26 07:18 | External Medical Summary ---
Author Name Unknown Address Unknown Organization K01:[facility] [place] [facility] [address] [facility] [address] Laboratory Report Ordering Provider Test Date Status BRANDYN BRUCE 01/02/2024 13:02:35 Final Observation Date Value Abnormality Reference (Units ) Status Streptococcus agalactiae DNA [Presence] in Specimen by JEANMARIE with probe detection 01/02/2024 13:02:35 Negative Negative Final No Group B Streptococcus det ected by culture-enhanced PCR (amplified probe).
The collection of vaginal/rectal swab specimen combinations (FDA approved specimen type) is optimal for the detection of Group B Streptococcus. Single source collection (vaginal only or rectal only) or alternate specimen sources may lead to false negative results. Performing Location [facility] [place] [address] [facility] [address]
--- OUTSIDE RECORDS SUMMARY | 2024-01-26 07:18 | External Medical Summary | Summary of Care ---
Author Name Unknown Organization [facility] Address [address] [place] [address] Phone [phone] Care Team Providers Care Graphic Technician Name Role Phone John Garsia MD Primary Care Provider [phone] Reason for Visit * Reason Onset Date Comments Advice 12/19/2023 Encounter Details Date Type Department Care Team ([facility] st Contact Info) Description 12/19/2023 Telephone [facility] [address] [place] [address] John Garsia MD [address] [place] [address] Advice Allergies No known active allergiesdocumented as [...] family support Discussed resources 06/30/2023 Dinora Diego, ERNESTINA 06/30/2023 Problem Action Taken Date entered Entered by Date resolved Need for food assistance referred to [facility] and local food soriano 06/30/2023 Dinora Diego [...] money to get more. Never true 08/24/2023 [place] Depression Scale Answer Date Recorded [place] Depression Scale Total 1 10/20/2023 The thought [...] encounter Miscellaneous Notes * Telephone Encounter - Marta Perez OSA - 12/19/2023 3:05 PM EDT Patient is going to [facility] as there are no appts available in any surrounding locations. 12/19/2023 * Telephone Encounter - Nellie Adkins LPN - 12/19/2023 2:56 PM EDT Please assist in scheduling. * Telephone Encounter - Rosa Rangel OSA - 12/19/2023 2:42 PM EDT No Appointments Available Patient declined appointments?: No What Visit Type is needed? Acute If Acute Visit Type is needed, were surrounding clinics offered to patient (Yes/No)? N/A Was patient offered appointments with other available providers (Yes/No)? N/A See Call Details? (Yes or No): Yes Pt finger is Numb just tip of finger not the whole finger documented in this encounter Plan of Treatment Upcoming Encounters Date Type Department Care Team (Late st Contact Info) Description 01/02/2024 11:30 AM EDT Office Visit Gynecology/Obstetrics Maria C Morse [address] [place] [address] Jyotsna Richter PA-C [address] [place] [address] Nurse Lito [facility] Return Sascha [address] [place] [address] 01/08/2024 2:30 PM EDT Office Visit Gynecology/Obstetrics Maria C Morse [address] [place] [address] Marta Hollingsworth PA-C [address] [place] [address] Nurse Lito [facility] Return Sascha [address] [place] [address] 01/16/2024 7:30 AM EDT Office Visit Gynecology/Obstetrics Maria C Morse [address] [place] [address] Jyotsna Richter PA-C [address] [place] [address] Nurse Lito Healthy [place] Return Sascha [address] [place] [address] 01/23/2024 7:30 AM EDT Office Visit Gynecology/Obstetrics Maria C Morse [address] [place] [address] Jyotsna Richter PA-C [address] [place] [address] Nurse Lito Sherron Caicedo [address] [place] [address] Health Maintenance Due Date Last Done Comments [...] filedocumented as of this encounter Care Teams Graphic Technician Relationship Specialty Start Date End Date John Garsia MD [address] [place] [address] PCP - General Family Medicine 03/04/19 documented as of this encounter
--- OUTSIDE RECORDS SUMMARY | 2024-01-26 07:19 | External Medical Summary | Summary of Care ---
Author Name Unknown Organization [facility] Address [address] [place] [address] Phone [phone] Care Team Providers Care Electronics Detail Draftsperson Name Role Phone John Garsia MD Primary Care Provider Reason for Visit * Reason Comments Healthy Beginnings Return Encounter Details Date Type Department Care Team ([facility] st Contact Info) Description 12/05/2023 10:15 AM EST Office Visit Gynecology/Obstetri ezio Morse [address] [place] [address] Jyotsna Richter PA-C [address] [place] [address] Nurse Lito [facility] Return Sascha [address] [facility] [place] [address] 32 weeks gestation of * Allergies No known active allergiesdocumented as of this encounter (statuses as of 12/05/2023) Medications Medication Sig Dispensed Refills Start Date [...] as of this encounter (statuses as of 12/05/2023) Active Problems Problem Noted Date Diagnosed Date Health counseling 06/30/2023 Overview: Problem Action Taken Date entered Entered by Date resolved Lack of family support Discussed resources 06/30/2023 Dinora Diego, ERNESTINA 06/30/2023 Problem Action Taken Date entered Entered by Date resolved Need for food assistance referred to [facility] and local food soriano 06/30/2023 Dinora Diego RN 06/30/2023 Problem Action Taken Date entered Entered by Date resolved Headache Increase fluids(non-caffeinated) 06/30/2023 Dinora Diego RN 06/30/2023 Problem Action Taken Date entered Entered by Date resolved Current needs or questions 2nd trimester education completed. Patient denies having any current needs or questions 07/29/2023 Shannon Ivy RN 07/29/2023 Encounter for supervision of normal first in first trimester 06/30/2023 Migraine without aura and wi thout status migrainosus, not intractable 11/12/2021 Headache, unspecified headache type 09/04/2018 Dermatitis 06/25/2017 Estimated Date of Delivery Comme nts Yes 01/24/2024 Based on Ultraso und documented as of this encounter (statuses as of 12/05/2023) Resolved Problems Problem Noted Date Diagnosed Date [...] as of this encounter (statuses as of 12/05/2023) Immunizations Name Administration Dates Next Due HPV [...] money to get more. Never true 08/24/2023 [place] Depression Scale Answer Date Recorded [place] Depression Scale Total 1 10/20/2023 The thought [...] Sign Reading Time Taken Comments Blood Pressure 114/76 12/05/2023 9:48 AM EST Pulse - - Temperature - - Respiratory Rate - - Oxygen Saturation - - Inhaled Oxygen Concentration - - Weight 69.4 kg (153 lb) 12/05/2023 9:48 AM EST Height 152.4 cm (5') 12/05/2023 9:48 AM EST Body Mass Index 29.88 12/05/2023 9:48 AM EST documented in this encounter Progress Notes * Jyotsna Richter PA-C - 12/05/2023 9:58 AM EST 32w6d Was to the ER on 11/28/2023 for nausea/abdominal pain which resolved. Believes related to eating [employer] earlier that day. Without concerns. Denies VB, LOF, contractions. Pos FM. RTC in 2 weeks Jyotsna Richter PA-C documented in this encounter Nursing Notes * Gloria Patino LPN - 12/05/2023 9:55 AM EST 32w6d Denies concerns Recent ER visit documented in this encounter Plan of Treatment Upcoming Encounters Date Type Department Care Team (Late st Contact Info) Description 12/19/2023 7:30 AM EDT Office Visit Gynecology/Obstetrics Maria C Morse [address] [place] [address] Jyotsna Richter PA-C [address] [place] [address] Nurse Lito [facility] Return Sascha [address] [place] [address] 01/02/2024 11:30 AM EDT Office Visit Gynecology/Obstetrics Rolon's Morse [address] [place] [address] Jyotsna Richter PA-C [address] [place] [address] Nurse Lito Healthy [facility]nings Return Sascha [address] [place] [address] 01/08/2024 2:30 PM EDT Office Visit Gynecology/Obstetrics Gonzales's Morse [address] [place] [address] Marta Hollingsworth PA-C [address] [place] [address] [place] [address] Nurse Lito Healthy [facility]nings Return Sascha [address] [place], [place] [address] 01/16/2024 7:30 AM EDT Office Visit Gynecology/Obstetrics Gonzales's Morse [address] [place] [address] Jyotsna Richter PA-C [address] [place] [address] Nurse Lito Healthy [facility] Return Sascha [address] [place], [place] [address] 01/23/2024 7:30 AM EDT Office Visit Gynecology/Obstetrics Gonzales's Morse [address] [place] [address] Jyotsna Richter PA-C [address] [place] [address] Nurse Lito Healthy [facility]nings Return Sascha [address] [place] [address] Health Maintenance Due Date Last Done Comments [...] as of this encounter Visit Diagnoses Diagnosis 32 weeks gestation of - Primary state, incidental documented in this encounter Care Teams Electronics Detail Draftsperson Relationship Specialty Start Date End Date John Garsia MD [address] [place] [address] PCP - General Family Medicine 03/04/19 documented as of this encounter
--- OUTSIDE RECORDS SUMMARY | 2024-01-26 07:19 | External Medical Summary | Summary of Care ---
Author Name Unknown Organization [facility] Address [address] [place] [address] Phone [phone] Care Team Providers Care Physiotherapy Assistant Name Role Phone John Garsia MD Primary Care Provider [phone] Reason for Visit * Reason Comments Healthy Beginnings Return Encounter Details Date Type Department Care Team ([facility] st Contact Info) Description 12/05/2023 10:15 AM EST Office Visit Gynecology/Obstetri ezio Morse [address] [place] [address] Jyotsna Richter PA-C [address] [place] [address] Nurse Lito [facility]nings Return Sascha [address] [facility] [place] [address] 32 weeks gestation of * Allergies No [...] resolved Need for food assistance referred to [facility] and local food soriano [...] or questions 12/05/2023 Shannon Ivy RN 12/05/2023 Encounter for supervision of normal first in [...] 12/05/2023) Immunizations Name Administration Dates Next Due DTaP [...] money to buy more. Never true 08/24/20 Within the past 12 months, t he food you bought just didn't last and you didn't have money to get more. Never true 08/24/2023 [place] Depression Scale Answer Date Recorded [place] Depression Scale Total 1 10/20/2023 The thought [...] Nursing Notes * Shannon Ivy RN - 12/05/2023 10:40 AM EST Patient seen by [facility] Double Needle Operator. * Gloria Patino LPN - 12/05/2023 9:55 AM EST 32w6d Denies concerns Recent ER visit documented in this encounter Plan of Treatment Upcoming Encounters Date Type Department Care Team (Late st Contact Info) Description 12/19/2023 7:30 AM EDT Office Visit Gynecology/Obstetrics Rolon's Morse [address] [place] [address] Jyotsna Richter PA-C [address] [place] [address] Nurse Lito Healthy Beginnings Return Sascha [address] [place] [address] 01/02/2024 11:30 AM EDT Office Visit Gynecology/Obstetrics Rolon's Morse [address] [place] [address] Jyotsna Richter PA-C [address] [place] [address] Nurse Lito Healthy [facility]nings Return Sascha [address] [place] [address] 01/08/2024 2:30 PM EDT Office Visit Gynecology/Obstetrics Rolon's Morse [address] [place] [address] Marta Hollingsworth PA-C [address] [place] [address] [place] [address] Nurse Lito Healthy [facility]nings Return Sascha [address] [place] [address] 01/16/2024 7:30 AM EDT Office Visit Gynecology/Obstetrics Maria C [facility] [address] [place] [address] Jyotsna Richter PA-C [address] [place] [address] Nurse Lito Healthy Beginning Return [facility] [address] [place] [address] 01/23/2024 7:30 AM EDT Office Visit Gynecology/Obstetrics Maria C [facility] [address] [place] [address] Jyotsna Richter PA-C [address] [place] [address] Nurse Lito Healthy [facility] [address] [place] [address] Health Maintenance Due Date Last Done Comments [...] incidental documented in this encounter Care Teams Physiotherapy Assistant Relationship Specialty Start Date End Date John Garsia MD [address] [place] [address] PCP - General Family Medicine 03/04/19 documented as of this encounter
[2024-01-26] MEDS ORDERED: OXYTOCIN 30 UNITS/NSS 30 UNITS/500 ML BAG IV PRN (08:44)
--- NOTE | 2024-01-26 08:50 | Obstetrical Progress Note ---
Date of Service January 26, 2024 Assessment & Plan (1) Oligohydramnios: Plan: Induction for oligo Day #1 FHR; CAT1 Ctx; 4-7 mins VE; ft/th/post Bedside sono; VT Plan admit Cytotec Q4 Admission and Anticipated Discharge Date Admission Date: January 26, 2024 Results & Data Vital Signs (Past 12 Hours) Vital Signs Temp Pulse Resp BP 01/26/24 07:32 36.9 C 82 20 134/81 01/26/24 07:23 82 134/81
[2024-01-26] MEDS: ACETAMINOPHEN 500 MG TAB PO PRN (09:09)
[2024-01-26] MEDS: miSOPROStoL 25 MCG TAB ONE (09:09)
[2024-01-26 09:10] LABS: Hematocrit (blood only) 35.3 % (37.0-47.0); Hemoglobin 11.7 g/dl (12.0-16.0); Mean Corpuscular Hemoglobin 28.1 pg (25.0-34.0); Mean Corpuscular Hgb Conc 33.1 g/dL (32.0-36.0); Mean Corpuscular Volume 84.9 fL (80.0-100.0); Mean Platelet Volume 10.8 fL (9.4-12.4); Platelet Count 265 K/uL (130-400); RDW Coefficient of Variation 14.8 % (11.5-14.5); RDW Standard Deviation 45.1 fL (36.4-46.3); Red Blood Count 4.16 M/uL (4.20-5.40); White Blood Count 9.48 K/ul (4.8-10.8)
[2024-01-26] MEDS: miSOPROStoL 50 MCG TAB ONE (09:23)
[2024-01-26] MEDS: miSOPROStoL 50 MCG TAB PO SCH (09:23)
[2024-01-26] MEDS: miSOPROStoL 50 MCG TAB PO ONE (09:24)
[2024-01-26] MEDS ORDERED: Nursing to Pharmacy Communication SCH (09:30)
[2024-01-26] MEDS: DINOPROSTONE 10 MG INSERT PV ONE (20:36)
--- NOTE | 2024-01-26 20:56 | Obstetrical Progress Note ---
Date of Service January 26, 2024 Assessment & Plan (1) Oligohydramnios: Plan: Induction of oligo TRENT 7.6 on 01/23/24 Day #1 Received 2 doses of Cytotec FHR; CAT1 CTx 4-6mins VE 10/30/3/post Cervidil placed in vagina Admission and Anticipated Discharge Date Admission Date: January 26, 2024 Results & Data Vital Signs (Past 12 Hours) Vital Signs Temp Pulse Resp BP 01/26/24 19:05 80 01/26/24 19:05 128/71 01/26/24 19:00 16 01/26/24 19:00 36.6 C 16 01/26/24 14:29 75 01/26/24 14:29 124/74 01/26/24 11:12 20 01/26/24 11:12 36.7 C 20 01/26/24 11:12 68 01/26/24 11:12 134/89
--- NOTE | 2024-01-27 08:42 | Obstetrical Progress Note ---
Date of Service January 27, 2024 Assessment & Plan Admission and Anticipated Discharge Date Admission Date: January 26, 2024 Subjective Patient is seen and examined. Reviewed her records and confirm with her. Induction of labor for oligohydramnios and postdates since yesterday. She has received p.o. Cytotec and then Cervidil overnight. She has been feeling contractions every 3 to 4 minutes, they are getting very painful for her. She rates them 10 out of 10. She states she could not get sleep overnight. She seems overwhelmed and she wants to have baby today. She states she wants to go home as soon as possible. I checked her cervix and it is 1 to 2 cm, 60% effaced, soft, posterior head is at -2 station. We discussed option of pain management in details. I offered her an epidural and then Alberto balloon insertion with IV oxytocin. After long discussion she decided to get epidural. All questions were answered. Continue to monitor closely. Results & Data Vital Signs (Past 12 Hours) Vital Signs Temp Pulse Resp BP 01/27/24 07:17 89 128/73 01/27/24 04:57 82 136/86 01/27/24 04:56 16 01/27/24 04:56 36.6 C 16 01/26/24 22:41 16 01/26/24 22:41 37.0 C 16 01/26/24 22:41 86 01/26/24 22:41 117/68
[2024-01-27] MEDS: LACTATED RINGER'S 1,000 ML IV PRN (08:52)
--- NOTE | 2024-01-27 09:17 | Anesthesiology Consultation ---
Date of Service January 27, 2024 Assessment & Plan Chart Review Chart Review: Acceptable Risk for Labor Epidural Consults Requested none ASA ASA2 Proposed Anesthesia Anesthesia Type: Labor Epidural Risk / Benefits Reviewed With: PT / POA / Parent / Guardian, Accepts Plan and Informed Consent Obtained History Height/Weight Height: 5 ft 2 in Weight: 73.028 kg Allergies Allergy/AdvReac Type Severity Reaction Status Date / Time No Known Allergies Allergy Verified 11/28/23 17:35 Medications Active Medications Generic Name Dose Route Start Last Admin Trade Name Freq PRN Reason Stop Dose Admin Acetaminophen 1,000 mg 01/26/24 08:44 01/26/24 19:52 Acetaminophen 500 Mg Tab PO 02/25/24 08:43 1,000 mg Q8H PRN Administration Pain Lactated Ringer's 1,000 mls @ 125 mls/hr 01/26/24 08:44 01/27/24 08:52 Lr IV 01/28/24 08:43 999 mls/hr .Q8H PRN Administration L&D Protocol Protocol Misoprostol 50 mcg 01/26/24 12:00 01/26/24 15:57 Misoprostol 50 Mcg Tab PO 02/25/24 11:59 50 mcg Q4 FOUZIA Administration Past Medical History Medical History Migraine No pertinent family history Depression Exercise / Class Metabolic Activity II 4-5 Yardwork/Stairs/Walk up hill Past Family History Family History Other No known health problems Past Surgical History Surgical History No pertinent past surgical history Past Anesthesia History No Hx of Anesthesia Complications and No Family Hx of Anesthesia Complications History of PONV No Hx of PONV and No Hx of Motion Sickness Social History Smoking Status: Never smoker Hx Alcohol Use: No Hx Substance Use: No substance use type: does not use Physical Exam Vital Signs Last Vital Signs Temp 97.9 F 01/27/24 04:56 Pulse 89 01/27/24 07:17 Resp 16 01/27/24 04:56 BP 128/73 01/27/24 07:17 ENMT Mouth: no dentition abnormality Thyromental Distance: > or= 3.5 Finger Breadths Mallampati Class: II Neck normal visual inspection Respiratory normal respiratory effort Auscultation: lungs clear to auscultation bilaterally Cardiovascular Rate/Rhythm: regular rate and regular rhythm Testing Laboratory Results 01/26/24 08:51
[2024-01-27] MEDS ORDERED: fentANYL 2 MCG/ML BUPIVacaine 0.125%-NSS 100ML BAG EPI PRN (09:37)
[2024-01-27] MEDS ORDERED: NALOXONE HCL 1 MG in SODIUM CHLORIDE 0.9% 1,000 ML IV PRN (09:37)
[2024-01-27] MEDS ORDERED: NALOXONE HCL 0.4 MG/1 ML VIAL/CARP IV PRN (09:37)
[2024-01-27] MEDS ORDERED: ONDANSETRON INJ 2 MG/ML 2 ML VIAL IV PRN (09:37)
[2024-01-27] MEDS: BUPIVACAINE 0.25% PF 30 ML VIAL ONE (09:37)
[2024-01-27] MEDS: LIDOCAINE 2%/EPINEPHRINE 1:200,000 20 ML PF ONE (09:37)
[2024-01-27] MEDS ORDERED: LIDOCAINE 2% MPF LOCAL 5 ML VIAL EPI PRN (09:37)
[2024-01-27] MEDS ORDERED: BUPIVACAINE 0.25% PF 30 ML VIAL EPI PRN (09:37)
[2024-01-27] MEDS ORDERED: NALBUPHINE HCL 5 MG in SYRINGE 0 ML IV PRN (09:37)
[2024-01-27] MEDS ORDERED: ePHEDrine sulfate 50 MG/ML AMP IV PRN (09:37)
[2024-01-27] MEDS ORDERED: fentaNYL citrate PF 100 MCG/2 ML VIAL EPI PRN (09:37)
[2024-01-27] MEDS ORDERED: SODIUM CHLORIDE 0.9% PF INJ 10 ML VIAL EPI PRN (09:37)
[2024-01-27] MEDS ORDERED: ROPIVACAINE 0.5% PF 5 MG/ML 20 ML VIAL EPI PRN (09:37)
[2024-01-27] MEDS ORDERED: diphenhydrAMINE 50 MG/ML VIAL IV PRN (09:37)
[2024-01-27] MEDS: fentANYL 2 MCG/ML BUPIVacaine 0.125%-NSS 100ML BAG ONE (09:38)
--- NOTE | 2024-01-27 10:08 | Obstetrical Progress Note ---
Date of Service January 27, 2024 Assessment & Plan Admission and Anticipated Discharge Date Admission Date: January 26, 2024 Subjective Patient was placed in dorsal rectum position. The speculum was placed in the vagina, cervix was visualized and cleaned with Betadine solution. Alberto catheter was inserted through the cervix and inflated with 40 mm of sterile water without difficulty. It was attached to the medial thigh with gentle traction. Vaginal exam was repeated and balloon was inside of the cervical canal and cervix feels 2 cm dilated. The patient tolerated procedure well, right rate had been category 1. Plan to start oxytocin per protocol and continue to monitor continuously. All questions were answered. Results & Data Vital Signs (Past 12 Hours) Vital Signs Temp Pulse Resp BP Pulse Ox 01/27/24 10:03 77 137/97 01/27/24 10:01 74 98 01/27/24 09:59 71 127/85 01/27/24 09:56 83 98 01/27/24 09:53 78 132/81 01/27/24 09:51 83 97 01/27/24 09:48 78 132/82 01/27/24 09:46 88 97 01/27/24 09:43 83 136/80 01/27/24 09:41 86 124/76 97 01/27/24 09:39 90 131/83 01/27/24 09:37 88 122/67 01/27/24 09:36 91 H 98 01/27/24 09:35 88 123/74 01/27/24 09:33 84 126/90 01/27/24 09:31 92 H 97 01/27/24 09:26 103 H 98 01/27/24 09:21 105 H 98 01/27/24 07:17 89 128/73 01/27/24 04:57 82 136/86 01/27/24 04:56 16 01/27/24 04:56 36.6 C 16 01/26/24 22:41 16 01/26/24 22:41 37.0 C 16 01/26/24 22:41 86 01/26/24 22:41 117/68
[2024-01-27] MEDS: OXYTOCIN 30 UNITS/NSS 30 UNITS/500 ML BAG IV PRN (10:22)
--- NOTE | 2024-01-27 13:42 | Obstetrical Progress Note ---
Date of Service January 27, 2024 Assessment & Plan Admission and Anticipated Discharge Date Admission Date: January 26, 2024 Subjective Patient is reevaluated. Alberto bulb came out earlier. VE; 5-6 cm/ 80%/-1, bulging bag, AROM'ed, small clear fluid FHR categ I Big Pool ctxs q 3-4 min, Oxytocin is at 10 miu/min Continue to monitor closely. Results & Data Vital Signs (Past 12 Hours) Vital Signs Temp Pulse Resp BP Pulse Ox 01/27/24 13:36 97 01/27/24 13:36 90 01/27/24 13:36 36.6 C 92 H 22 145/95 H 01/27/24 13:31 92 H 98 01/27/24 13:26 98 H 97 01/27/24 13:21 97 H 98 01/27/24 13:20 64 133/68 01/27/24 13:16 95 H 98 01/27/24 13:11 65 97 01/27/24 13:08 84 132/92 01/27/24 13:06 88 97 01/27/24 13:01 80 96 01/27/24 12:56 82 96 01/27/24 12:51 90 147/87 H 97 01/27/24 12:46 70 96 01/27/24 12:41 70 97 01/27/24 12:36 96 01/27/24 12:36 58 L 01/27/24 12:36 69 120/63 01/27/24 12:31 72 97 01/27/24 12:26 105 H 96 01/27/24 12:21 78 133/82 96 01/27/24 12:16 89 95 01/27/24 12:11 85 96 01/27/24 12:06 96 01/27/24 12:06 84 01/27/24 12:06 88 132/86 01/27/24 12:01 78 95 01/27/24 11:56 89 96 01/27/24 11:51 84 135/77 96 01/27/24 11:46 84 96 01/27/24 11:41 92 H 96 01/27/24 11:36 90 114/77 97 01/27/24 11:31 87 97 01/27/24 11:26 89 97 01/27/24 11:21 86 124/80 98 04/23/24 11:16 83 97 04/24 11:11 95 H 97 04/24 11:06 97 04//24 11:06 89 04/24 11:06 80 142/81 H 04/24 11:01 86 98 04/24 10:56 89 97 01/26/24 10:51 81 97 04/24 10:46 94 H 97 01/26/24 10:41 87 97 01/26/24 10:36 91 H 97 01/26/24 10:35 88 116/65 04/24 10:31 93 H 97 01/26/24 10:26 86 98 04/24 10:21 85 97 01/26/24 10:16 90 98 01/26/24 10:13 88 121/80 04/24 10:11 84 98 01/26/24 10:09 81 131/87 04/24 10:06 77 98 01/26/24 10:03 77 137/97 01/26/24 10:01 74 98 01/26/24 09:59 71 127/85 04/24 09:56 83 98 04/24 09:53 78 132/81 04/24 09:51 83 97 04/24 09:48 78 132/82 04/24 09:46 88 97 04/24 09:43 83 136/80 04/24 09:41 86 124/76 97 04/24 09:39 90 131/83 04/24 09:37 88 122/67 04/24 09:36 91 H 98 01/26/24 09:35 88 123/74 0423/24 09:33 84 126/90 04/24 09:31 92 H 97 0423/24 09:26 103 H 98 04/24 09:21 105 H 98 04/24 07:17 89 128/73 04/24 04:57 82 136/86 04/24 04:56 16 01/26/24 04:56 36.6 C 16
[2024-01-27] MEDS: ePHEDrine sulfate 50 MG/ML AMP ONE (14:07)
[2024-01-27] MEDS: fentaNYL citrate PF 100 MCG/2 ML VIAL ONE (14:08)
[2024-01-27] MEDS: fentaNYL citrate PF 100 MCG/2 ML VIAL EPI STA (14:08)
[2024-01-27] MEDS: LIDOCAINE 2%/EPINEPHRINE 1:200,000 20 ML PF EPI STA (14:08)
[2024-01-27] MEDS: BUPIVACAINE 0.25% PF 30 ML VIAL EPI STA (14:08)
[2024-01-27] MEDS: SODIUM CHLORIDE 0.9% PF INJ 10 ML VIAL EPI STA (14:08)
[2024-01-27] MEDS: SODIUM CHLORIDE 0.9% PF INJ 10 ML VIAL ONE (14:08)
[2024-01-27] MEDS: LIDOCAINE 1% LOCAL 20 ML VIAL INFIL PRN (15:33)
[2024-01-27] MEDS ORDERED: DIPHTHER/TETAN/PERTUS Vaccine (Tdap, Adol/Adult) 0.5mL IM ONE (16:11)
[2024-01-27] MEDS ORDERED: OXYTOCIN 30 UNITS/NSS 30 UNITS/500 ML BAG IV PRN (16:11)
[2024-01-27] MEDS ORDERED: MEASLES, MUMPS & RUBELLA VIRUS VACCINE (MMR) 0.5ML VIAL SQ ONE (16:11)
[2024-01-27] MEDS ORDERED: HYDROCORTISONE ACETATE 25 MG SUPP PR PRN (16:11)
[2024-01-27] MEDS ORDERED: bisacodyL 10 MG SUPP PR PRN (16:11)
[2024-01-27] MEDS ORDERED: BENZOCAINE 20% SPRY 85 APPLN/85 GM CAN EXT PRN (16:11)
[2024-01-27] MEDS ORDERED: oxyCODONE/ACETAMINOPHEN 5mg/325mg TAB PO PRN (16:11)
--- NOTE | 2024-01-27 16:15 | Delivery Summary ---
Vaginal Delivery Summary Date of Service January 27, 2024 Vaginal Delivery Summary Patient was found to be fully dilated and desires to push. She pushed for about 30 min and delivered the head and then shoulders with minimal traction. There were 2 rounds of nuchal cords and those were reduced. The baby was handed off to the mother. The cord was clampedx2 and cut. Noted terminal meconium too. The baby was handed off to the pediatric team. The vagina and perineum were checked and found to have 2nd degree perineal and first degree labial lacerations. Rectal exam was done and noted good sphincter tone. The gloves were changes. The vaginal mucosa was repaired with 2/0 vicryl and skin on subcuticular fashion. The placenta was delivered spontaneously as intact and complete. The uterus was explored and found to be empty. QBL was 116 ml. The fundus was firm. The baby was a viable female infant, Apgars 8/9, the weight is pending The mother and the baby tolerated the procedure well. No complications happened and I was present during whole procedure.
--- NOTE | 2024-01-27 16:54 | Anesthesia Procedure Note ---
Date of Service January 27, 2024 Anesthesia Post Epidural Note Vital Signs Vital Signs: Temp Pulse Resp BP Pulse Ox 97.9 F 97 H 22 132/84 99 01/27/24 13:36 01/27/24 16:44 01/27/24 13:36 01/27/24 16:44 01/27/24 15:26 Pain Intensity Lower Medial Abdomen: Pain Intensity: 4 Notes Mental Status: alert / awake / arousable and participated in evaluation Nausea / Vomiting: adequately controlled Pain: adequately controlled Airway Patency, RR, SpO2: stable & adequate BP & HR: stable & adequate Hydration State: stable & adequate Neuraxial Anesthesia: was administered and sensory block is resolving Anesthetic Complications: no major complications apparent and Pt Satisfied with anesthetic care Epidural: Removed without complications and With tip intact
[2024-01-27] MEDS: DOCUSATE SODIUM 100 MG CAP PO SCH (21:39)
[2024-01-27] MEDS: IBUPROFEN 600 MG TAB PO PRN (21:39)
[2024-01-28 06:46] LABS: Hemoglobin 9.6 g/dl (12.0-16.0); Mean Corpuscular Hemoglobin 27.7 pg (25.0-34.0); Mean Corpuscular Volume 86.5 fL (80.0-100.0); Mean Platelet Volume 11.1 fL (9.4-12.4); Platelet Count 260 K/uL (130-400); RDW Coefficient of Variation 14.9 % (11.5-14.5); RDW Standard Deviation 46.5 fL (36.4-46.3); Red Blood Count 3.47 M/uL (4.20-5.40); White Blood Count 13.64 K/ul (4.8-10.8)
[2024-01-28] MEDS: FERROUS SULFATE 325 MG TAB PO SCH (08:16)
[2024-01-28] MEDS: PRENATAL VITAMIN 1 TAB PO SCH (08:16)
[2024-01-28] MEDS: ACETAMINOPHEN 325 MG TAB PO PRN (08:22)
--- NOTE | 2024-01-28 08:42 | Obstetrical Progress Note ---
Date of Service January 28, 2024 Assessment & Plan (1) Normal course: PPD #1 Pt doing well anticipate disch toorrow Results & Data Vital Signs (Past 12 Hours) Vital Signs Temp Pulse Resp BP Pulse Ox O2 Del Method 01/28/24 03:18 36.5 C 88 18 129/78 98 Room Air 01/27/24 23:00 36.5 C 96 H 18 128/75 99 Room Air
[2024-01-28] MEDS: bisacodyL 5 MG TABEC PO SCH (20:57)
[2024-01-29 06:08] LABS: Hematocrit (blood only) 29.6 % (37.0-47.0); Hemoglobin 9.7 g/dl (12.0-16.0)
--- NOTE | 2024-01-29 07:54 | Obstetrical Progress Note ---
Date of Service January 29, 2024 Assessment & Plan (1) Normal course: Continue routine care Discharge home today with follow-up in clinic Will give discharge instructions. Patient voiced her understanding and agreement with the plan. All questions answered in the room Subjective Ambulation: ambulating normally Voiding: no voiding problems Passing Gas:: Yes Diet Tolerance:: regular diet Lochia:: Small Feeding Type:: bottle feeding Current Pain Level(1-10): 0 Patient sitting comfortably in bed, bonding well with baby. No complaints at this time. Would like to go home today Physical Exam Constitutional WD/WN, vitals as above Respiratory normal respiratory effort, lungs clear to auscultation Cardiovascular RRR, no murmur, no edema Gastrointestinal (Abdomen) normal bowel sounds, soft, nontender, no hepatosplenomegaly Fundus below umbilicus Musculoskeletal no cyanosis or clubbing, extremities motor strength 5/5 Results & Data Vital Signs (Past 12 Hours) Vital Signs Temp Pulse Resp BP Pulse Ox O2 Del Method 01/28/24 23:30 36.9 C 73 18 121/82 97 Room Air 01/28/24 23:30 Room Air Laboratory Results Laboratory Results WBC 13.64 K/ul (4.8-10.8) H 01/28/24 05:43 RBC 3.47 M/uL (4.20-5.40) L 01/28/24 05:43 Hgb 9.7 g/dl (12.0-16.0) L 01/29/24 05:39 Hct 29.6 % (37.0-47.0) L 01/29/24 05:39 MCV 86.5 fL (80.0-100.0) 01/28/24 05:43 MCH 27.7 pg (25.0-34.0) 01/28/24 05:43 MCHC 32.0 g/dL (32.0-36.0) 01/28/24 05:43 RDW Std Deviation 46.5 fL (36.4-46.3) H 01/28/24 05:43 RDW Coeff of Luis 14.9 % (11.5-14.5) H 01/28/24 05:43 Plt Count 260 K/uL (130-400) 01/28/24 05:43 MPV 11.1 fL (9.4-12.4) 01/28/24 05:43
== END 2024-01-29 10:46 | disposition home or self-care (01) | DRG 806 ==
LOC: 4S1 07:03 → 4E2 01-27 19:07